=== PATIENT | male | born 1950 | race Caucasian/White ===

== ENCOUNTER → 2024-08-06 11:26 | Outpatient (REF) | payer MEDICARE, SELFPAY | LOC: HWRAD 11:26 | PROVIDERS: ATTENDING PHYSICIAN Internal Medicine Critical Care Medicine | DX: R06.09 Other forms of dyspnea (principal) | CPT/HCPCS: 71046 ==

== ENCOUNTER → 2024-08-07 12:24 | Outpatient (REF) | payer MEDICARE, SELFPAY | LOC: RCS 12:24 | PROVIDERS: ATTENDING PHYSICIAN Internal Medicine Critical Care Medicine | DX: R06.09 Other forms of dyspnea (principal) | CPT/HCPCS: 93306 ==

== ENCOUNTER → 2025-10-19 14:46 | Outpatient (REF) | payer MEDICARE, SELFPAY | LOC: HWRAD 14:46 | PROVIDERS: ATTENDING PHYSICIAN Internal Medicine Critical Care Medicine | DX: Z87.891 Personal history of nicotine dependence (principal) | CPT/HCPCS: 71271 ==